=== PATIENT | female | born 1960 | race Caucasian/White ===

== ENCOUNTER → 2017-03-06 | Outpatient (CLI) | payer OTHER ==
[2015-10-06 07:00] VITALS: BP 136/51
[~2017-03-06] MED LIST: CIPR500T94 PO
--- NOTE | 2017-03-06 09:14 | RAD ---
EXAM: MAMMO JIMENEZ SCREENING BILATERAL HISTORY: Routine Screening. COMPARISON: 02/27/2016 Standard mammographic views are obtained of the bilateral breasts. Additionally three-dimensional tomographic images obtained. This study was interpreted with the benefit of Computerized Aided Detection (CAD). FINDINGS: The breast parenchyma shows scattered fibroglandular densities. Breast parenchyma level B.. There is no definite new suspicious spiculated mass or worrisome new cluster of microcalcifications. IMPRESSION: No definite new suspicious mass. BI-RADS CATEGORY: 1 NEGATIVE RECOMMENDED FOLLOW-UP: 12M 12 MONTH FOLLOW-UP PQRS compliance statement: Patient information was entered into a reminder system with a target due date for the next mammogram. Mammography is a sensitive method for finding small breast cancers, but it does not detect them all and is not a substitute for careful clinical examination. A negative mammogram does not negate a clinically suspicious finding and should not result in delay in biopsying a clinically suspicious abnormality. "Our facility is accredited by the [employer] Mammography Program."
== END | disposition home or self-care (01) ==
LOC: MAMMO 07:44
PROVIDERS: ATTEND Obstetrics & Gynecology
DX: Z12.31 Encounter for screening mammogram for malignant neoplasm of breast (principal)
CPT/HCPCS: 77063; G0202; 77067

== ENCOUNTER 2018-01-21 15:02 | Emergency (ER) | payer OTHER ==
[2018-01-21 15:26] VITALS: BP 154/89
--- NOTE | 2018-01-21 15:47 | PHYS DOC ---
Past History Past Medical History: Hypertension, Other Past Surgical History: , Hysterectomy, Tonsillectomy Alcohol Use: None Drug Use: None Adult General Chief Complaint Chief Complaint: LOWER EXT PAIN HPI HPI 49-year-old female presenting the emergency department today with pain in the left lower leg. She has history of factor V. She is not on oral anticoagulants. She reports the pain was in the calf and moved up to the back of the knee. It is sharp moderate mild pain not associated with swelling or erythema of the leg. She denies any other symptoms. She denies chest pain or shortness of breath. Review of systems is negative for abdominal pain nausea vomiting fevers or chills. All other review of systems is negative unless otherwise noted in history of present illness. ED course: 49-year-old female presenting the emergency department today with left lower extremity pain without any recent trauma. She is afebrile here with a normal heart rate. Saturating well on room air. She is well-appearing on examination. Mild tenderness along the venous system to palpation. No erythema or swelling of the left leg. Ultrasound along with blood work obtained. Ultrasound unremarkable. We will have repeat ultrasound performed in 7 days. pt is supposed to follow up with PCP in 2-3 days for reexamination.The patient has been examined and was not found to have an emergency medical condition. The patient was then discharged home in stable condition to follow up with their primary care physician over the next 2-3 days. They were to return if their symptoms worsened or if they were concerned for any reason. They were also instructed to return to the emergency department if they were unable to get the recommended and appropriate follow-up. [id number] discharge instructions and return precautions were given. Patient's questions were answered to their satisfaction. Patient is comfortable with plan. Review of Systems Review of Systems SEE ABOVE. Allergies Allergies Allergies Coded Allergies Type Severity Reaction Last Updated Verified No Known Drug Allergies 10/06/15 No Physical Exam Physical Exam SEE ABOVE Constitutional: Well developed, well nourished, no acute distress, non-toxic appearance. [] HENT: Normocephalic, atraumatic, bilateral external ears normal, oropharynx moist, no oral exudates, nose normal. [] Eyes: PERRLA, EOMI, conjunctiva normal, no discharge. [] Neck: Normal range of motion, no tenderness, supple, no stridor. [] Cardiovascular:Heart rate regular rhythm, no murmur [] Lungs & Thorax: Bilateral breath sounds clear to auscultation [] Abdomen: Bowel sounds normal, soft, no tenderness, no masses, no pulsatile masses. [] Skin: Warm, dry, no erythema, no rash. [] Back: No tenderness, no CVA tenderness. [] Extremities: No tenderness, no cyanosis, no clubbing, ROM intact, no edema. [] Neurologic: Alert and oriented X 3, normal motor function, normal sensory function, no focal deficits noted. [] Psychologic: Affect normal, judgement normal, mood normal. [] Current Patient Data Vital Signs Vital Signs Date Time Temp Pulse Resp B/P (MAP) Pulse Ox O2 Delivery O2 Flow Rate FiO2 01/21/18 15:26 97.7 72 18 100 Room Air EKG EKG [] Radiology/Procedures Radiology/Procedures [] Course & Med Decision Making Course & Med Decision Making Pertinent Labs and Imaging studies reviewed. (See chart for details) [] Dragon Disclaimer Dragon Disclaimer This electronic medical record was generated, in whole or in part, using a voice recognition dictation system. Departure Departure: Impression: Primary Impression: Leg pain Additional Impression: Leg pain, left Disposition: 01 HOME, SELF-CARE Condition: STABLE Referrals: ESMER GALDAMEZ (PCP) Additional Instructions: Thank you for allowing us to participate in your care today. Return to the emergency department you have any new or worsening symptoms, or if you are concerned for any reason. Return to emergency department if you have any new or concerning symptoms including but not limited to fever, chills, nausea, vomiting, intractable pain, any new rashes, chest pain, shortness of air , uncontrolled bleeding, difficulty breathing, and/or vision loss. Follow up with your primary care physician within 3 days. Call your Primary Doctor tomorrow and inform them of your visit today. If you do not have a primary care provider we are happy to provide you with a list of our primary care providers contact information. This condition should be evaluated by your primary care physician and any recommended consulting services for continued management within 2-3 days after discharge. If at any time, you are having difficulty getting into your primary care doctor or a specialist, return to the emergency department. Problem Qualifiers GIL SOFIA MD Jan 21, 2018 15:47
[2018-01-21 16:00] LABS: BASO # 0.1 x10^3/uL (0.0-0.2); BASO % 1 % (0-3); EOS # 0.3 x10^3/uL (0.0-0.7); EOS % 4 % (0-3); HEMATOCRIT 41.3 % (36.0-47.0); HEMOGLOBIN 14.1 g/dL (12.0-15.5); LYMPH # 2.1 x10^3/uL (1.0-4.8); LYMPH % 25 % (24-48); MEAN CORPUSCULAR HEMOGLOBIN 29 pg (25-35); MEAN CORPUSCULAR HGB CONC 34 g/dL (31-37); MEAN CORPUSCULAR VOLUME 84 fL (79-100); MONO # 0.6 x10^3/uL (0.0-1.1); MONO % 7 % (0-9); NEUT # 5.2 x10^3uL (1.8-7.7); NEUT % 63 % (31-73); PLATELET COUNT 266 x10^3/uL (140-400); RED CELL DISTRIBUTION WIDTH 14.4 % (11.5-14.5); WHITE BLOOD COUNT 8.2 x10^3/uL (4.0-11.0)
[2018-01-21 16:06] LABS: CALCIUM 8.4 mg/dL (8.5-10.1); CREATININE 0.8 mg/dL (0.6-1.0); GFR 73.7; POTASSIUM 3.4 mmol/L (3.5-5.1)
[2018-01-21 16:07] LABS: PREG TEST PT QUAL NEGATIVE (NEG)
--- NOTE | 2018-01-21 17:05 | RAD ---
Ultrasound venous Doppler INDICATION:DX: Left Leg pain DVT TECHNIQUE: Grayscale, color Doppler and spectral waveform ultrasound images of the left lower extremities deep veins obtained. COMPARISON: None FINDINGS: The interrogated deep veins are compressible and demonstrate evidence of blood flow with normal respiratory variation and response to augmentation. IMPRESSION: No sonographic evidence of acute DVT of the left lower extremity deep veins. Electronically signed by: Didier Nova DO (01/21/2018 5:02 PM) [facility]
== END 2018-01-21 17:47 | disposition home or self-care (01) ==
LOC: ER 15:02
DX: M79.662 Pain in left lower leg (principal); M25.562 Pain in left knee; I10 Essential (primary) hypertension
CPT/HCPCS: 36415; 80048; 84703; 85025; 93971; 99285-25

== ENCOUNTER → 2018-03-11 | Outpatient (CLI) | payer OTHER ==
--- NOTE | 2018-03-12 09:44 | RAD ---
DATE: 03/11/2018 EXAM: MAMMO JIMENEZ SCREENING BILATERAL HISTORY: Routine screening COMPARISON: 03/06/2017 This study was interpreted with the benefit of Computerized Aided Detection (CAD). Breast Density: SCATTERED The breast parenchyma shows scattered fibroglandular densities. Breast parenchyma level B. FINDINGS: 2-D and 3-D tomosynthesis imaging was performed in CC and MLO projections. The fibroglandular pattern is mildly asymmetric with increased fibroglandular densities in the lateral aspect of the right breast compared to the left. This appears unchanged. No new or enlarging breast densities are seen. No suspicious microcalcifications are evident. IMPRESSION: Stable mammograms without evidence of malignancy. BI-RADS CATEGORY: 2 BENIGN FINDING(S) RECOMMENDED FOLLOW-UP: 12M 12 MONTH FOLLOW-UP PQRS compliance statement: Patient information was entered into a reminder system with a target due date for the next mammogram. Mammography is a sensitive method for finding small breast cancers, but it does not detect them all and is not a substitute for careful clinical examination. A negative mammogram does not negate a clinically suspicious finding and should not result in delay in biopsying a clinically suspicious abnormality. "Our facility is accredited by the [employer] Mammography Program."
== END | disposition home or self-care (01) ==
LOC: MAMMO 09:18
PROVIDERS: ATTEND Obstetrics & Gynecology
DX: Z12.31 Encounter for screening mammogram for malignant neoplasm of breast (principal)
CPT/HCPCS: 77063; 77067

== ENCOUNTER 2018-09-18 09:45 | Inpatient (IN) | payer OTHER ==
[~2018-09-18] VITALS: Ht 175.3 cm; Wt 85.4 kg
[2018-09-18] MEDS ORDERED: ASPIRIN 81 MG TAB.CHEW PO ONE (10:00)
--- NOTE | 2018-09-18 10:01 | PHYS DOC ---
Past History Past Medical History: Hypertension, Other Additional Past Medical Histor: adhd Past Surgical History: , Hysterectomy, Tonsillectomy Alcohol Use: None Drug Use: None Adult General Chief Complaint Chief Complaint: DIZZY/LIGHT HEADED [facility] HPI Patient is a 57-year-old female who presents with a syncopal episode. She was standing in line for breakfast at approximately 8:00 this morning. She started feeling her heart beating fast, had a syncopal episode that her partner reports lasted 10-15 seconds. She was lowered to the ground. She did not strike her head. As she woke up she was escorted to a bench and had another syncopal episode at that time. She had one episode of nausea and vomiting. No diaphoresis. No specific chest pains. Symptoms have subsequently resolved. Patient has no previous cardiac history.[] Review of Systems Review of Systems Constitutional: Denies fever or chills [] Eyes: Denies change in visual acuity, redness, or eye pain [] HENT: Denies nasal congestion or sore throat [] Respiratory: Denies cough or shortness of breath [] Cardiovascular: No additional information not addressed in HPI [] GI: Denies abdominal pain, nausea, vomiting, bloody stools or diarrhea [] : Denies dysuria or hematuria [] Musculoskeletal: Denies back pain or joint pain [] Integument: Denies rash or skin lesions [] Neurologic: Denies headache, focal weakness or sensory changes [] Endocrine: Denies polyuria or polydipsia [] All other systems were reviewed and found to be within normal limits, except as documented in this note. Allergies Allergies Allergies Coded Allergies Type Severity Reaction Last Updated Verified No Known Drug Allergies 10/06/15 No Physical Exam Physical Exam Constitutional: Well developed, well nourished, no acute distress, non-toxic appearance. [] HENT: Normocephalic, atraumatic, bilateral external ears normal, oropharynx moist, no oral exudates, nose normal. [] Eyes: PERRLA, EOMI, conjunctiva normal, no discharge. [] Neck: Normal range of motion, no tenderness, supple, no stridor. [] Cardiovascular:Heart rate regular rhythm, no murmur [] Lungs & Thorax: Bilateral breath sounds clear to auscultation [] Abdomen: Bowel sounds normal, soft, no tenderness, no masses, no pulsatile masses. [] Skin: Warm, dry, no erythema, no rash. [] Back: No tenderness, no CVA tenderness. [] Extremities: No tenderness, no cyanosis, no clubbing, ROM intact, no edema. [] Neurologic: Alert and oriented X 3, normal motor function, normal sensory function, no focal deficits noted. [] Psychologic: Affect normal, judgement normal, mood normal. [] EKG EKG EKG shows a sinus rhythm at 60 bpm, normal axis, normal QTC, no ST elevations. Interpreted by me at 1015. No old EKG available for comparison.[] Radiology/Procedures Radiology/Procedures PROCEDURE: PORTABLE CHEST 1V AP portable chest radiograph 09/18/2018 Clinical History: Syncope. An AP erect portable digital radiograph of the chest was obtained. No previous studies are available for comparison. The cardiac silhouette is borderline enlarged. The thoracic aorta is minimally tortuous. A 5 mm calcified granuloma is seen involving the left lower lobe. No acute pulmonary infiltrate is seen. No pleural effusion or pneumothorax is noted. Degenerative changes are seen involving the thoracic spine and both shoulders. IMPRESSION: No acute abnormality is seen.[] Course & Med Decision Making Course & Med Decision Making Pertinent Labs and Imaging studies reviewed. (See chart for details) ED course: Patient arrived, was placed in bed, and tolerated exam well. She remained in stable condition without any detectable tachycardia or significant bradycardia on her monitoring strip while in the emergency department. Consultation was made with the hospitalist for admission and he graciously accepted. Patient was admitted in improved condition. Findings and plan with discussed with patient and family who voiced understanding. All questions were answered. Medical decision makin-year-old female with a syncopal episode after having palpitations. Concern for cardiac dysrhythmia. There is no evidence of an ST elevation FL at this time. No evidence of significant electrolyte abnormality.[] Dragon Disclaimer Dragon Disclaimer This electronic medical record was generated, in whole or in part, using a voice recognition dictation system. Departure Departure: Impression: Primary Impression: Syncope Disposition: ADMITTED INPATIENT Admitting Physician: Can Lewis Condition: IMPROVED Referrals: ESMER GALDAMEZ (PCP) Problem Qualifiers Primary Impression: Syncope Syncope type: unspecified Qualified Codes: R55 - Syncope and collapse EIAGUSTIN DUFFY DO September 18, 2018 10:01
[2018-09-18] MEDS ORDERED: ASPIRIN 81 MG TAB.CHEW ONE (10:21)
[2018-09-18] MEDS ORDERED: IV NORMAL SALINE 1,000ML 1,000 ML IV ONE (10:30)
--- NOTE | 2018-09-18 10:43 | RAD ---
AP portable chest radiograph 09/18/2018 Clinical History: Syncope. An AP erect portable digital radiograph of the chest was obtained. No previous studies are available for comparison. The cardiac silhouette is borderline enlarged. The thoracic aorta is minimally tortuous. A 5 mm calcified granuloma is seen involving the left lower lobe. No acute pulmonary infiltrate is seen. No pleural effusion or pneumothorax is noted. Degenerative changes are seen involving the thoracic spine and both shoulders. IMPRESSION: No acute abnormality is seen. Electronically signed by: Tan Grimes MD (09/18/2018 10:40 AM) [facility]
[2018-09-18 11:03] LABS: BASO # 0.1 x10^3/uL (0.0-0.2); BASO % 1 % (0-3); EOS # 0.3 x10^3/uL (0.0-0.7); EOS % 5 % (0-3); HEMOGLOBIN 13.6 g/dL (12.0-15.5); LYMPH % 16 % (24-48); MEAN CORPUSCULAR HEMOGLOBIN 27 pg (25-35); MEAN CORPUSCULAR HGB CONC 33 g/dL (31-37); MEAN CORPUSCULAR VOLUME 82 fL (79-100); MONO # 0.3 x10^3/uL (0.0-1.1); MONO % 5 % (0-9); NEUT # 4.5 x10^3uL (1.8-7.7); NEUT % 74 % (31-73); PLATELET COUNT 185 x10^3/uL (140-400); RED BLOOD COUNT 4.97 x10^6/uL (3.50-5.40); WHITE BLOOD COUNT 6.1 x10^3/uL (4.0-11.0)
[2018-09-18 11:23] LABS: ALBUMIN 3.8 g/dL (3.4-5.0); CALCIUM 9.5 mg/dL (8.5-10.1); GFR 56.9; MAGNESIUM 2.5 mg/dL (1.8-2.4); TOTAL BILIRUBIN 0.5 mg/dL (0.2-1.0); TOTAL PROTEIN 7.6 g/dL (6.4-8.2)
[2018-09-18] MEDS ORDERED: IV NORMAL SALINE 1,000ML 1,000 ML IV SCH (11:35)
[2018-09-18] MEDS ORDERED: ACETAMINOPHEN 325 MG TABLET PO PRN (11:45)
[2018-09-18] MEDS ORDERED: NITROGLYCERIN SUBLINGUAL 0.4 MG BOTTLE OF 25. SL PRN (11:45)
[2018-09-18] MEDS ORDERED: ONDANSETRON PF 4 MG/2 ML VIAL. IV PRN (11:45)
[2018-09-18 11:47] LABS: PREG TEST PT QUAL NEGATIVE (NEG)
--- NOTE | 2018-09-18 12:50 | EKG ---
[address] [address] Test Date: 2018-09-18 Test Time: 10:14:52 Pat Name: FAYE PERDUE Department: Room: 115 A Gender: F Camouflage Specialist: : 1960 Requested By: AGUSTIN GRACE Order Number: [id number] Reading MD: Rene Rodriguez MD Measurements Intervals [place] Rate: 60 P: 50 VT: 180 QRS: 25 QRSD: 86 T: 45 QT: 418 QTc: 418 Interpretive Statements SINUS RHYTHM Electronically Signed On 09-19-2018 8:27:38 CDT by Rene Rodriguez MD
[2018-09-18] MEDS ORDERED: ATOR20TA PO (14:00)
[2018-09-18] MEDS ORDERED: ARIP10TA9 PO (14:00)
[2018-09-18] MEDS ORDERED: METH54TA5 PO (14:00)
[2018-09-18] MEDS ORDERED: ALPR1TAB2 PO ×2 (14:00)
[2018-09-18] MEDS ORDERED: SERT100T PO (14:00)
[2018-09-18] MEDS ORDERED: TRIA1TAB5 PO (14:00)
[2018-09-18] MEDS ORDERED: TOPI50TA38 PO (14:00)
[2018-09-18 14:03] VITALS: BP 109/74
[2018-09-18] MEDS ORDERED: POTASSIUM CHLORIDE 20 MEQ TABLET.ER. PO ONE (14:45)
[2018-09-18] MEDS: POTASSIUM CL 40MEQ IN 0.9%NACL 1,000 ML IV SCH (15:07)
[2018-09-18 15:12] LABS: CALCIUM 8.9 mg/dL (8.5-10.1); CREATININE 0.9 mg/dL (0.6-1.0); GFR 64.3; POTASSIUM 3.3 mmol/L (3.5-5.1)
[2018-09-18 15:32] LABS: HEMATOCRIT 42.1 % (36.0-47.0); RED BLOOD COUNT 5.1 x10^6/uL (3.50-5.40); RED CELL DISTRIBUTION WIDTH 14.3 % (11.5-14.5); WHITE BLOOD COUNT 7.7 x10^3/uL (4.0-11.0)
[2018-09-18 15:35] VITALS: BP 121/79
--- NOTE | 2018-09-18 16:41 | HP ---
ADMIT DATE: 09/18/2018 HISTORY OF PRESENT ILLNESS: The patient is a 57-year-old female patient who was brought to the Emergency Room with syncopal episode. She was standing in line for breakfast at approximately 8:00 a.m. in the morning and she started feeling her heart beating fast, had a syncopal episode; however, her was there and he helped her down to the floor. She did not strike her head. As she woke up, she was escorted to a bench, had what seems to have multiple other episodes of syncope. She had 1 episode of nausea, vomiting, no diaphoresis, no chest pain. Her symptoms have subsequently resolved and she was brought to the Emergency Room where she was extensively investigated. Her lab work was unremarkable. Her EKG showed that she was in sinus rhythm at 60 beats per minute with normal axis deviation, corrected QT interval. No ST segment elevation. Chest x-ray was unremarkable and the patient was admitted. Her first set of cardiac enzyme showed troponin to be less than 0.017. The patient was admitted for further evaluation and treatment. PAST MEDICAL HISTORY: Significant for ADD. She has been treated with Ritalin at younger age and now she is on Concerta and she was started recently on generic form. She has obviously had depression, anxiety and panic attack. MEDICATIONS: She is currently on the following medication: Atorvastatin calcium 20 mg daily. She is on topiramate for Topamax 50 mg twice a day, sertraline 100 mg at bedtime. She is on Abilify 10 mg at bedtime, methylphenidate for Concerta 72 mg daily, alprazolam 1.5 mg at bedtime and alprazolam 1 mg 3 times a day. She is on triamterene/hydrochlorothiazide 75/50 one tablet daily. FAMILY HISTORY: She has 1 sister and 2 brothers, all younger and healthy. Her father is alive at age of 87, has no medical problems. Mother alive at the age of 78 and is known to have hypertension, survived breast cancer. SOCIAL HISTORY: She is , has 2 sons, 2 daughters and 3 sons. She quit smoking 20 years ago. She does not drink alcohol or use any recreational drugs. 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 REVIEW OF SYSTEMS: The patient denied any blurring of vision, cataract, glaucoma or macular degeneration. Denied any earache, tinnitus or sensorineural deafness. Denied any nosebleeds, stuffy nose or postnasal drip. Denied any sore throat, sore tongue, toothache, hoarseness of voice or difficulty swallowing. Denied any nausea, vomiting, diarrhea or constipation. Denied any hematemesis, melena or hematochezia. Denied any dysuria, frequency or hematuria. Denied any chest pain, shortness of breath, orthopnea or paroxysmal nocturnal dyspnea. Did complain of dizziness and lightheadedness. Denied any syncope. Denied any cough, phlegm or hemoptysis. Denied any chills, rigors or fever. PHYSICAL EXAMINATION: GENERAL: On arrival to the Emergency Room, she looked well and was clearly in no apparent respiratory distress. No pallor or jaundice, cyanosis, or thyromegaly. No jugular venous distension. No lower limb edema. VITAL SIGNS: Her heart rate was 71, blood pressure was 109/74, temperature was 97.8, respiratory rate 20, and oxygen saturation was 95% on room air. HEAD, EYES, EARS, NOSE, AND THROAT: Showed normocephalic, atraumatic. NECK: Supple. HEART: Showed normal first and second heart sounds. No gallop, rub or murmur. CHEST: Clear to auscultation. No crepitation or rhonchi. ABDOMEN: Distended, soft, nontender. NEUROLOGIC: She is awake, alert, responding appropriately. All cranial nerves intact. EXTREMITIES: She moves extremities without difficulty. She ambulates without assistance or assistive devices. LABORATORY DATA: In the Emergency Room showed serum sodium was 138, potassium 3, chloride 101, bicarbonate 26, anion gap of 11, BUN 11, creatinine 1, estimated GFR was 57 mL per minute. Her glucose was 123, calcium was 9.5, magnesium was 2.5. Total bilirubin, AST, ALT, alkaline phosphatase were normal. Her total protein was 7.6, albumin was 3.8. Her white cell count was 6100, hemoglobin 13.6, hematocrit 41, MCV 82 and platelet count of 185,000. Her prothrombin time was 9.4, INR of 0.9. IMPRESSION: In summary, this is a 57-year-old female patient who came with recurrent syncopal episode. Initially, she was standing in line to eat her breakfast when she developed palpitation, no chest pain, no previous cardiac workup; however, she is known to have hypertension, hyperlipidemia, although the patient denied that. She is currently on atorvastatin as well as triamterene/hydrochlorothiazide. She has hypokalemia. PLAN: My plan is to arrange to check her orthostatics, replenish her potassium. I will add D-dimer to the lab work and also consult the bellhop service captain as well as the neurologist. We will arrange for her to have bilateral carotid Doppler ultrasound and if her D-dimer is high, we will check her bilateral lower extremity venous Doppler ultrasound. APURVA LESLIE MD DR: AMADOR/scotty JOB#: [id number] / [id number]
[2018-09-18 19:40] VITALS: BP 105/66
[2018-09-18] MEDS: POTASSIUM CHLORIDE 20 MEQ TABLET.ER. PO SCH (20:42)
[2018-09-18] MEDS ORDERED: ALPRAZolam 0.5 MG TABLET PO PRN (21:30)
[2018-09-18 22:50] VITALS: BP 107/74
[2018-09-19] MEDS: POTASSIUM CL 40MEQ IN 0.9%NACL 1,000 ML IV SCH ×2 (05:04→11:00)
[2018-09-19 05:44] VITALS: BP 128/78
[2018-09-19 07:18] LABS: BASO # 0.1 x10^3/uL (0.0-0.2); BASO % 1 % (0-3); EOS # 0.3 x10^3/uL (0.0-0.7); EOS % 4 % (0-3); HEMATOCRIT 42.2 % (36.0-47.0); HEMOGLOBIN 13.8 g/dL (12.0-15.5); LYMPH # 1.5 x10^3/uL (1.0-4.8); LYMPH % 21 % (24-48); MEAN CORPUSCULAR HEMOGLOBIN 27 pg (25-35); MEAN CORPUSCULAR HGB CONC 33 g/dL (31-37); MEAN CORPUSCULAR VOLUME 83 fL (79-100); MONO # 0.5 x10^3/uL (0.0-1.1); MONO % 6 % (0-9); NEUT # 4.9 x10^3uL (1.8-7.7); NEUT % 68 % (31-73); PLATELET COUNT 238 x10^3/uL (140-400); RED CELL DISTRIBUTION WIDTH 14.6 % (11.5-14.5); WHITE BLOOD COUNT 7.3 x10^3/uL (4.0-11.0)
[2018-09-19 07:29] LABS: ALBUMIN/GLOBULIN RATIO 0.9 (1.0-1.7); CALCIUM 8.4 mg/dL (8.5-10.1); CREATININE 0.8 mg/dL (0.6-1.0); GFR 73.7; POTASSIUM 3.9 mmol/L (3.5-5.1); TOTAL BILIRUBIN 0.5 mg/dL (0.2-1.0); TOTAL PROTEIN 6.4 g/dL (6.4-8.2)
--- NOTE | 2018-09-19 08:46 | PDOC ---
PROVIDER NOTE PROVIDER NOTE PROVIDER NOTE CARDIOLOGY CONSULTATION NOTE REASON FOR CONSULTATION; SYNCOPE Consulting physician: Dr. Lewis CC: Passed out HPI: 57 y.o woman in her usual state of health, was standing in line a breakfast buffet and felt onset of palpitations for 15 seconds and then fell to floor but did not hit herself as her helped her down. She vaguely remembers this. Next several minutes felt some nausea. Initial EKG by EMS was unremarkable but she was apparently hypotensive. She denies any issues at home such as angina, dyspnea, orthopnea or PND. No recent viral syndrome. She did change to a generic form of her ADD medicine yesterday. Otherwise no new issues. No problems as a child with any palpitations or syncope. No new stressors at work or at home. PMhx: 1. ADD 2. Anxiety Sochx: No alcohol, tob or illicit drug use. Works in IT. Famhx: No SCD. ALL: NKDA Current CV meds: None, while at home she was on HCTZ/Triam Physical Exam: Constitutional: Well developed, well nourished, no acute distress, non-toxic appearance. [] HENT: Normocephalic, atraumatic, Eyes: PERRLA, EOMI, conjunctiva normal, no discharge. [] Neck: Normal range of motion, no tenderness, supple, no stridor. [] Cardiovascular:Heart rate regular rhythm, no murmur [] Lungs & Thorax: Bilateral breath sounds clear to auscultation [] Abdomen: Bowel sounds normal, soft, no tenderness, no masses, no pulsatile masses. [] Skin: Warm, dry, no erythema, no rash. [] Back: No tenderness, no CVA tenderness. [] Extremities: No tenderness, no cyanosis, no clubbing, ROM intact, no edema. [] Neurologic: Alert and oriented X 3, normal motor function, normal sensory function, no focal deficits noted. [] Psychologic: Affect normal, judgement normal, mood normal. [] DIAGNOSTIC TESTING: EKG unremarkable Trop negative x 2 Labs notable for K 3.0, otherwise unremarkable. CXR/Carotid unremarkable. Impression: 1. Syncope likely due to arrhythmia (Due to hypokalemia, chiropractic physician hours where patient was likely hypovolemic likely triggered SVT). No arrhythmias on telemetry. Cardiac exam wnl. Do not suspect any intrinsic cardiac issues. Plan: 1. Will put a two week monitor on her this thursday at our office in [place]. 2. Will set up outpt echo. 3. No driving until cardiac and neurologic w/u completed. Ok to DC today with close outpt f/u. Discussed with patient and . They have our office information. Thanks. HECTOR HARRELL MD September 19, 2018 08:46
[2018-09-19] MEDS: POTASSIUM CHLORIDE 20 MEQ TABLET.ER. PO SCH ×2 (09:19→14:07)
--- NOTE | 2018-09-19 10:52 | RAD ---
Bilateral carotid arterial duplex study 09/19/2018 CLINICAL HISTORY: Recurrent syncopal episodes. TECHNIQUE: Using a combination of real-time ultrasound imaging and color-flow and pulse Doppler imaging techniques, duplex evaluation of the common carotid arteries, carotid bifurcations and internal carotid arteries along with the vertebral arteries within the neck was performed. Multiple images were obtained. Stenosis calculations for carotid ultrasound are based on validated velocity measurements which are noted to correlate with the NASCET methodology. FINDINGS: Mild atheromatous/atherosclerotic plaque formation is seen involving both carotid bifurcations and proximal internal carotid arteries bilaterally. The peak systolic velocities are not elevated. No hemodynamically significant stenosis is seen. Both vertebral arteries demonstrate normal antegrade flow. IMPRESSION: Mild atheromatous/atherosclerotic plaque formation is seen involving both carotid bifurcations. No hemodynamically significant stenosis or area of occlusion is seen. Electronically signed by: Tan Grimes MD (09/19/2018 10:49 AM) [facility]
[2018-09-19 11:24] VITALS: BP 122/80
[2018-09-19 13:54] VITALS: BP_SYST 121; BP_SYST 128; BP_DIAS 80; BP_DIAS 86
[2018-09-19 13:55] VITALS: BP 143/90
[2018-09-19] MEDS ORDERED: IOHEXOL 350 MG/ML 100 ML VIAL. IV ONE (15:45)
--- NOTE | 2018-09-19 17:18 | RAD ---
CT ANGIOGRAPHY CHEST Indication: Recurrent syncopal episodes. . Technique: After intravenous contrast administration, CT imaging was performed of the chest. MIP reconstructions were obtained. Exposure: One or more of the following individualized dose reduction techniques were utilized for this examination: 1. Automated exposure control 2. Adjustment of the mA and/or kV according to patient size 3. Use of iterative reconstruction technique. Mild ectasia of the ascending aorta, 3.4 cm. No gross aortic aneurysm or dissection is identified. Mild coronary artery calcification. Proximal great vessels are grossly patent. No evidence of pulmonary embolism is identified. There is no pericardial effusion. No evidence of pleural effusion. No evidence of significant lymph node enlargement. No significant thyroid mass. Mild atelectasis in the lung bases. Trachea and central airways are patent. Lungs demonstrate no evidence of consolidating infiltrate. There are mild degenerative changes of the spine. No evidence of aggressive bone destruction. Scans the upper abdomen are limited due to technique. There is a small hiatal hernia. There appear to be surgical sutures at the proximal stomach. IMPRESSION: 1. Mild pulmonary atelectasis. 2. Mild ascending aortic ectasia. 3. Otherwise no acute findings. Electronically signed by: Sky Tineo MD (09/19/2018 5:16 PM) [facility]
[2018-09-19] MEDS ORDERED: POTA20TA4 PO (17:34)
--- NOTE | 2018-09-20 00:32 | CONS ---
DATE OF CONSULTATION: 09/19/2018 NEUROLOGY CONSULTATION REFERRING PHYSICIAN: Dr. Lewis. REASON FOR CONSULTATION: Syncope, rule out seizure. HISTORY OF PRESENT ILLNESS: This is a 57-year-old right-handed female who was admitted through Emergency Room after she presented with a sudden onset of "fainting spell." According to the patient, she was standing in line for breakfast at a local restaurant around 8:00 yesterday morning and all of a sudden she had palpitations, lightheadedness, dizziness, brief loss of consciousness [id number] seconds, and started falling. Her helped her down to the floor and she did not hit herself. EMS was activated and she was found at the scene having a normal EKG. In the Emergency Room, the patient was found to have low potassium at 3. The patient did not have a post-event confusion or disorientation. She recalls all the events. She denies chest pain, shortness of breath, headaches, dysarthria, dysphagia, or paraesthesia. No convulsions were noticed during this spell. The patient never had any similar episode in the past. On arrival to Emergency Room, her EKG was within sinus rhythm at 68 beats per minute. PAST MEDICAL HISTORY: Significant for attention deficit disorder. The patient was treated with Ritalin when she was young, but currently she is on Concentra started generic form recently. She has had history of anxiety attacks, anxiety disorder, depression, hyperlipidemia, and hypertension. FAMILY HISTORY: Father is alive at the age of 87 and mother is alive at the age of 78 with history of hypertension and breast cancer. SOCIAL HISTORY: The patient is . She has 2 sons and 2 daughters. She denies smoking, alcohol drinking, or illicit drug use. 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 REVIEW OF SYSTEMS: A 10-point review of systems was performed as mentioned above in history of present illness, otherwise unremarkable. Currently, the patient states she is back to normal baseline. PHYSICAL EXAMINATION: GENERAL: Well-developed, well-nourished female, not in acute distress. She weighs 85.4 kilos. VITAL SIGNS: Blood pressure 122/80, respiratory rate 20, pulse 68, temperature 97.8, oxygen saturation 99% on room air. HEENT: Normocephalic, atraumatic, otherwise unremarkable. NECK: Supple. Negative for carotid bruit, lymphadenopathy, or thyromegaly. LUNGS: Clear to A and P. CARDIOVASCULAR: Regular rate and rhythm. Normal S1, S2. There is no S3, S4, or murmurs. ABDOMEN: Soft. Bowel sounds positive. EXTREMITIES: Negative for cyanosis, clubbing, or edema. NEUROLOGIC: Mental status: The patient is alert and oriented x 3. The speech is fluent. There is no language dysfunction. Memory, judgment, and abstracting thinking are normal. The patient denies hallucination or delusion. CRANIAL NERVES: Visual richter are full. The pupils are reactive to light and accommodation. The extraocular movements are intact. There is no nystagmus. There is no facial motor or sensory deficit. Hearing is intact bilaterally. The palate is elevated symmetrically. Sternocleidomastoid muscles are powerful bilaterally. The patient shrugs her shoulders symmetrically and protrudes her tongue in the midline without fasciculation or atrophy. MOTOR: No focal muscle bulk was seen. The tone is normal. The strength is 5/5 throughout. SENSORY: Revealed normal pinprick, light touch, vibratory, and position senses. Deep tendon reflexes were symmetric and active without pathology responses. Gait and coordination are normal. DIAGNOSTIC: Carotid Doppler study revealed mild atherosclerotic plaque, otherwise no significant stenosis and chest x-ray revealed no acute cardiopulmonary process. LABORATORY DATA: CBC revealed white blood cells of 7.3 thousand, hemoglobin 13.8, hematocrit 42.2, platelet count 238,000. Chemistry revealed sodium 139, potassium 3.9, chloride 106, CO2 26, BUN 12, creatinine 0.8, glucose is 93, calcium 8.4. Troponin level is normal. Coagulation: D-dimer is high at 1.28. IMPRESSION: 1. Acute onset of palpitation and fainting spell resulted in syncope and rule out cardiac arrhythmias, probably induced by hypokalemia. 2. Remote possibility of non-convulsive seizure. 3. Multiple medical problems include hyperlipidemia, hypertension. 4. Multiple psychiatric problems include depressions, anxiety disorders, recurrent panic attack, and history of attention deficit disorder. 5. Higher elevated D-dimer. RECOMMENDATIONS: 1. Cardiac workup including Holter monitoring and echocardiogram. 2. Potassium supplement - done with current normal potassium. 3. Continue with current management initiated by Dr. Lewis. 4. Check blood pressure and pulse for orthostatic changes. 5. We will arrange for electroencephalogram to be done on an outpatient basis. Otherwise, the patient is neurologically intact at this time. M Susan FRYE MD DR: LAUREL/scotty JOB#: [id number] / [id number]
== END 2018-09-19 17:35 | disposition home or self-care (01) | DRG 309 ==
LOC: ER 09:45 → 1 SOUTH 11:59 → UNDOADMIN 11:59 → 1 SOUTH 12:09 → INTOOBSV 12:09 → OBSVTOIN 12:09
PROVIDERS: ADMIT Internal Medicine; ATTEND Internal Medicine
DX: I49.9 Cardiac arrhythmia, unspecified (principal); I47.1 Supraventricular tachycardia; E87.6 Hypokalemia; E78.5 Hyperlipidemia, unspecified; E86.1 Hypovolemia; F41.0 Panic disorder [episodic paroxysmal anxiety]; F41.1 Generalized anxiety disorder; F32.9 Major depressive disorder, single episode, unspecified; F90.9 Attention-deficit hyperactivity disorder, unspecified type; I10 Essential (primary) hypertension; Z80.3 Family history of malignant neoplasm of breast; Z82.49 Family history of ischemic heart disease and other diseases of the circulatory system; Z90.710 Acquired absence of both cervix and uterus; Z87.891 Personal history of nicotine dependence; Z90.49 Acquired absence of other specified parts of digestive tract
CPT/HCPCS: 36415; 71045; 71275; 80048; 80053; 83735; 83880; 84443; 84484; 84703; 85025; 85027; 85379; 85610; 93005; 93880; 96360; 96361; G0378; G0379; 99285-25; J7030

== ENCOUNTER → 2018-12-07 | Outpatient (CLI) | payer OTHER ==
[~2018-12-07] MED LIST changes: +ALPR1TAB2 PO; +ARIP10TA9 PO; +ATOR20TA PO; +METH54TA5 PO; +POTA20TA4 PO; +SERT100T PO; +TOPI50TA38 PO; +TRIA1TAB5 PO
--- NOTE | 2018-12-07 14:29 | CARD ---
MR#: [id number] Date of Study: 12/07/2018 Ordering Physician: HECTOR HARRELL, Referring Physician: HECTOR HARRELL, Tech: Jazmín Ahn [facility] APPROVED REPORT EXAM: Two-dimensional and M-mode echocardiogram with Doppler and color Doppler. Other Information Quality : AverageHR: 83bpm Rhythm : NSR INDICATION Syncope 2D DIMENSIONS RVDd3.4 (2.9-3.5cm)Left Atrium(2D)3.6 (1.6-4.0cm) IVSd1.0 (0.7-1.1cm)Aortic Root(2D)3.1 (2.0-3.7cm) LVDd4.3 (3.9-5.9cm)LVOT Diameter2.0 (1.8-2.4cm) PWd0.9 (0.7-1.1cm)LVDs3.1 (2.5-4.0cm) FS (%) 29.5 %SV48.3 ml LVEF(%)56.7 (>50%) Aortic Valve AoV Peak Homer.116.4cm/sAoV VTI20.9cm AO Peak GR.5.4mmHgLVOT Peak Homer.114.9cm/s LVOT VTI 20.47cmAO Mean GR.2mmHg INDIO (VMAX)2.63vd9CFR (VTI)2.95cm2 Mitral Valve MV E Epvytajo50.3cm/sMV DECEL [id number] MV A Pebmiwxw88.3cm/sE/A Ratio0.9 Pulmonary Valve PV Peak Wmrtjgan532.8cm/sPV Peak Grad.5mmHg Tricuspid Valve TR P. Ctkfehat046qw/sRAP [id number] TR Peak Gr.73qdBuHMXS38qvEs LEFT VENTRICLE The left ventricle is normal size. There is normal left ventricular wall thickness. The left ventricu lar systolic function is normal. The Ejection Fraction is 55-60%. There is normal LV segmental wall m otion. Transmitral Doppler flow pattern is Grade I-abnormal relaxation pattern. RIGHT VENTRICLE The right ventricle is normal size. There is normal right ventricular wall thickness. The right ventr icular systolic function is normal. ATRIA The left atrium size is normal. The right atrium size is normal. The interatrial septum is intact wit h no evidence for an atrial septal defect or patent foramen ovale as noted on 2-D or Doppler imaging. AORTIC VALVE The aortic valve is normal in structure and function. The aortic valve is trileaflet. Doppler and Col or Flow revealed no significant aortic regurgitation. There is no significant aortic valvular stenosi s. MITRAL VALVE The mitral valve is normal in structure and function. There is no evidence of mitral valve prolapse. There is no mitral valve stenosis. Doppler and Color-flow revealed trace mitral regurgitation. TRICUSPID VALVE The tricuspid valve is normal in structure and function. Doppler and Color Flow revealed mild tricusp id regurgitation. The PA pressure was estimated at 28 mmHg. There is no tricuspid valve prolapse or v egetation. There is no tricuspid valve stenosis. PULMONIC VALVE The pulmonic valve is not well visualized. GREAT VESSELS The aortic root is normal in size. The ascending aorta is normal in size. The IVC is normal in size a nd collapses >50% with inspiration. PERICARDIAL EFFUSION There is no evidence of significant pericardial effusion. Critical Notification Critical Value: No <Conclusion> The left ventricular systolic function is normal. The Ejection Fraction is 55-60%. There is normal LV segmental wall motion. Transmitral Doppler flow pattern is Grade I-abnormal relaxation pattern. Trace mitral regurgitation. Mild tricuspid regurgitation. The PA pressure was estimated at 28 mmHg. There is no evidence of significant pericardial effusion. Signed by : Avel Hernandez, Electronically Approved : 12/07/2018 14:28:18
== END | disposition home or self-care (01) ==
LOC: ECHO 13:48
PROVIDERS: ATTEND Internal Medicine Cardiovascular Disease
DX: I07.1 Rheumatic tricuspid insufficiency (principal)
CPT/HCPCS: 93306

== ENCOUNTER → 2019-03-22 | Outpatient (CLI) | payer OTHER ==
--- NOTE | 2019-03-23 09:00 | RAD ---
DATE: 03/22/2019 EXAM: MAMMO JIMENEZ SCREENING BILATERAL HISTORY: Routine screening COMPARISON: 02/27/2016 03/06/2017, 03/11/2018 mammographic exams This study was interpreted with the benefit of Computerized Aided Detection (CAD). Breast Density: SCATTERED The breast parenchyma shows scattered fibroglandular densities. Breast parenchyma level B. FINDINGS: No suspicious calcifications, masses, or distortion. IMPRESSION: Stable BI-RADS CATEGORY: 1 NEGATIVE RECOMMENDED FOLLOW-UP: 12M 12 MONTH FOLLOW-UP PQRS compliance statement: Patient information was entered into a reminder system with a target due date for the next mammogram. Mammography is a sensitive method for finding small breast cancers, but it does not detect them all and is not a substitute for careful clinical examination. A negative mammogram does not negate a clinically suspicious finding and should not result in delay in biopsying a clinically suspicious abnormality. "Our facility is accredited by the [employer] Mammography Program."
== END | disposition home or self-care (01) ==
LOC: MAMMO 13:16
PROVIDERS: ATTEND Obstetrics & Gynecology
DX: Z12.31 Encounter for screening mammogram for malignant neoplasm of breast (principal)
CPT/HCPCS: 77063; 77067

== ENCOUNTER → 2020-01-12 | Outpatient (CLI) | payer OTHER ==
[~2020-01-12] MED LIST changes: +IOHEXOL 300 MG/ML 75 ML VIAL. IV ONE
--- NOTE | 2020-01-12 15:24 | RAD ---
EXAM: CT Neck with IV contrast INDICATION: Reason: SWOLLEN LYMPH NODE LEFT SIDE OF NECK / Spl. Instructions: / History: TECHNIQUE: Multiple contiguous axial images were obtained of the neck with the use of IV contrast. Post-processing reconstructed images were obtained for interpretation. All CT scans performed at this facility utilize dose optimization techniques as appropriate to the exam, including the following: Automated exposure control and adjustment of the mA and/or KV according to patient size (this includes techniques or standardized protocols for targeted exams where dose is indication/reason for exam). IV CONTRAST: Administered COMPARISON: None FINDINGS: INTRACRANIAL STRUCTURES & ORBITS: Unremarkable. AERODIGESTIVE: The nasal cavity, nasopharynx, oral cavity, oropharynx, hypopharynx, larynx, and visualized trachea and esophagus demonstrate no masses or abnormal enhancement. CERVICAL LYMPH NODES & SOFT TISSUES: A BB on the lateral aspect of the left upper neck is present, presumably identifying the area of palpable concern. This overlies the inferior aspect of the left submandibular gland which appears unremarkable. There are mildly prominent level 1 cervical lymph nodes, largest measuring 9 mm (image 37 of series 2). No rounded morphology or abnormal enhancement is seen. No evidence of infiltrative margins or suppurative or necrotic adenopathy. THYROID & SALIVARY GLANDS: Unremarkable. LUNG APICES: Clear. OSSEOUS: Minimal mid cervical degenerative changes in the discs notably at C5-C6 and C6-C7 are present. No significant bony central canal stenosis in the cervical or visualized thoracic spine. IMPRESSION: Normal CT of the neck with IV contrast. No neck mass or cervical adenopathy is apparent. Electronically signed by: Helena Noyola MD (01/12/2020 3:21 PM) [id number]
== END | disposition home or self-care (01) ==
LOC: CT 09:49
PROVIDERS: ATTEND Physician Assistant Medical
DX: R22.1 Localized swelling, mass and lump, neck (principal); M47.812 Spondylosis without myelopathy or radiculopathy, cervical region
CPT/HCPCS: 70491; Q9967

== ENCOUNTER → 2020-05-10 | Outpatient (CLI) | payer OTHER ==
[~2020-05-10] MED LIST changes: -IOHEXOL 300 MG/ML 75 ML VIAL. IV ONE
--- NOTE | 2020-05-10 09:37 | RAD ---
EXAM: Abdomen sonogram. HISTORY: Nausea. TECHNIQUE: Sonographic imaging of the abdomen was performed. COMPARISON: None. FINDINGS: The liver is normal in size. No hepatic lesion is seen. The common bile duct is normal in c aliber. The gallbladder is unremarkable. The right kidney is normal in size. No solid or cystic renal lesion is seen. The pancreas and aorta are partially obscured due to bowel gas. There is no free flu id. IMPRESSION: 1. Partially obscured midline structures due to bowel gas. 2. No acute sonographic finding. Electronically signed by: Soarya Becerra MD (05/10/2020 9:35 AM) [id number]
== END ==
LOC: US 07:51
PROVIDERS: ATTEND Physician Assistant Medical
DX: R11.0 Nausea (principal)
CPT/HCPCS: 76705

== ENCOUNTER → 2020-11-26 | Outpatient (CLI) | payer OTHER ==
--- NOTE | 2020-11-26 17:16 | RAD ---
DATE: 11/26/2020 EXAM: MAMMO JIMENEZ PHAN, BREAST LEFT HISTORY: Left breast periareolar pain and itching COMPARISON: Mammogram 03/22/2019 and 03/11/2018 This study was interpreted with the benefit of Computerized Aided Detection (CAD). Breast Density: SCATTERED The breast parenchyma shows scattered fibroglandular densities. Breast parenchyma level B. FINDINGS: Mammogram: No mass, suspicious calcification, or architectural distortion in either breast. ULTRASOUND: The left breast was scanned in the area of concern in the retroareolar region and in the left axilla. There is no cyst or mass, or skin thickening seen in the retroareolar region. Normal-appearing lymph nodes are seen in the left axilla. IMPRESSION: No evidence of malignancy. Recommend annual screening mammogram. BI-RADS CATEGORY: 2 BENIGN FINDING(S) RECOMMENDED FOLLOW-UP: ADD ADDITIONAL IMAGING PQRS compliance statement: Patient information was entered into a reminder system with a target due date for the next mammogram. Mammography is a sensitive method for finding small breast cancers, but it does not detect them all and is not a substitute for careful clinical examination. A negative mammogram does not negate a clinically suspicious finding and should not result in delay in biopsying a clinically suspicious abnormality. "Our facility is accredited by the [employer] Mammography Program."
== END ==
LOC: MAMMO 13:46
PROVIDERS: ATTEND Physician Assistant Medical
DX: N64.4 Mastodynia (principal)
CPT/HCPCS: 76641; 77066; G0279; 77062

== ENCOUNTER → 2021-10-03 | Outpatient (CLI) | payer OTHER ==
[~2021-10-03] MED LIST changes: +POTA-121 PO; -POTA20TA4 PO
--- NOTE | 2021-10-03 13:50 | RAD ---
PROCEDURE: US BREAST LT, MG DIGITAL BILAT DIAGNOSTIC MAMMO WITH JIMENEZ HISTORY: The patient is 60 years old and is seen for Reason: LT BREAST PAIN/ITCHINESS X1 MONTH / Spl. Instructions: / History: . COMPARISON: November 26, 2020 TECHNIQUE: CC and MLO views of both breasts were obtained. Images were processed by the [employer] computer-aided detection system. Targeted left breast ultrasound. DENSITY: There are scattered fibroglandular densities. FINDINGS: Right mammogram: No developing mass, suspicious calcifications or architectural distortion. Left mammogram: No suspicious mass, microcalcification or architectural distortion. Left ultrasound: No mass or fluid collection correspond with patient's palpable concern. No pathologi c lymphadenopathy within the left axilla. IMPRESSION: No mammographic or ultrasound evidence of abnormality to correspond with patient's palpab le concern. Recommend continued clinical follow-up for patient's left breast pain and discomfort. Recommend annual screening mammograms per [employer] guidelines. She will be due in one year. BI-RADS category 2 Benign Patient entered into a reminder system for annual screening mammogram. Electronically signed by: Shahriar Cordero DO (10/03/2021 1:48 PM) [id number]
--- NOTE | 2021-10-03 17:04 | RAD ---
DXA BONE DENSITY AXIAL History: Reason: POST MENOPAUSAL / Spl. Instructions: / History: Comparison: None. TECHNIQUE: Dual energy x-ray absorptiometry of the lumbar spine and right hip was performed. T-score of average bone mineral density based was calculated based on standard deviations above or below the expected young adult normal value. Diagnostic definitions were established by the [employer]. FINDINGS: The average bone mineral density associated with L1-L4 is 1.105 g/cm^2, corresponding with a T-score of -0.6. The average total bone mineral density associated with right hip is 0.891 g/cm^2, corresponding with a T-score of -0.5. Refer to the worksheets for full detail. IMPRESSION: 1. Normal. Average bone mineral density yields a T-score of -1.0 or greater. Fracture risk is low. Electronically signed by: Shahriar Cordero DO (10/03/2021 5:02 PM) [id number]
== END ==
LOC: MAMMO 12:30
PROVIDERS: ATTEND Physician Assistant Medical
DX: Z78.0 Asymptomatic menopausal state (principal); N64.4 Mastodynia
CPT/HCPCS: 76641; 77066; 77080; G0279; 77062